=== PATIENT | female | born 1970 | race Caucasian/White ===

== ENCOUNTER 2016-12-05 12:40 | Emergency (ER) | payer OTHER ==
[~2016-12-05] VITALS: Ht 165.1 cm; Wt 61.2 kg
[~2016-12-05 12:40] MED LIST: ADVAIR DISKU 11 UNIT INH; ALBUTEROL0.09 MG/A1 INH; ALBUTEROL1.25 MG/3 INH/SOL; PREDNISONE 20MG20 MG PO; VENLAFAXINE H37.5 M1 PO
--- NOTE | 2016-12-05 14:05 | ED DYSPNEA/ASTHMA COMPLAINT ---
History of Present Illness General Chief Complaint: Wheezing/Asthma Stated Complaint: ASTHMA Source: patient Exam Limitations: no limitations Vital Signs & Intake/Output Vital Signs & Intake/Output Vital Signs Date Time Temp Pulse Resp B/P Pulse O2 O2 Flow FiO2 Ox Delivery Rate 12/05 1428 95 12/05 1427 98.4 74 20 125/76 95 Room Air 12/05 1251 98.0 91 18 151/93 100 Room Air Allergies Coded Allergies: MDX - Bartlett (WALNUT) (Severe, ANAPHYLAXIS 07/23/15) Uncoded Allergies: GLOVE POWDER (04/04/11) Triage Note: PT TO ED FOR ASTHMA EXACERBATION. TRIED INHALERS AT HOME WITH MINIMAL RELIEF. AUDIBLE WHEEZING IN TRIAGE. Triage Nurses Notes Reviewed? yes : No Patient currently breastfeeds: No HPI: This patient is a 46-year-old female with a past medical history including asthma who presented to the emergency department today with shortness of breath. The patient reported that she is having an asthma exacerbation. She reported that her symptoms started yesterday and have been worsening. She reported that she feels that she is wheezing and has some chest tightness. The patient reported that she ran out of her Advair recently. She has been taking oral air inhaler at home without any relief of her symptoms. Using nebulizer treatments at home without any relief. The patient is denying any fevers, chills, cough, sputum production, abdominal pain, nausea, vomiting, chest pain, or any other associated symptoms. (SACHA HOLBROOK,CUATE) Reconcile Medications Albuterol Sulfate (Albuterol Sulfate Hfa) 0.09 MG/Actuation DARION 2 PUFF INH Q4- 6 PRN PRN SHORTNESS OF BREATH (Reported) 90 MCG PER PUFF Albuterol Sulfate (Albuterol Sulfate Nebulizer Soln) 1.25 MG/3 ML LYN 1 Vial INH/LYN Q6 PRN DYSPNEA Albuterol Sulfate 1.25 MG/3 ML VIAL.NEB 1 Vial INH/LYN Q4-6 PRN ASTHMA Fluticasone-Salmeterol (Advair 100-50 Diskus) 1 UNIT INH 1 PUF INH BID BREATHING PROBLEMS (Reported) Methylprednisolone. (Medrol) 4 MG TAB.DS.PK 1 DP PO AD ASTHMA 6 on day 1 then reduce by one tablet daily until gone VENLAFAXINE HCL (Venlafaxine HCl ER) 37.5 MG CER 1 CAP PO DAILY MENTAL HEALTH (Reported) (EUN WALSH,KE) Past History Travel History Traveled to [place] past 21 day No Medical History Any Pertinent Medical History? see below for history Neurological: NONE EENT: NONE Cardiovascular: NONE Respiratory: asthma Gastrointestinal: NONE Hepatic: NONE Renal: NONE Musculoskeletal: NONE Psychiatric: NONE Endocrine: NONE Blood Disorders: NONE Cancer(s): basal cell carcinoma Surgical History Surgical History: non-contributory Psychosocial History What is your primary language Cuban Tobacco Use: Never used ETOH Use: denies use Illicit Drug Use: denies illicit drug use Family History Hx Contributory? No (CUATE GONCALVES PA-C) Review of Systems Review of Systems Constitutional: Reports: no symptoms. EENTM: Reports: no symptoms. Respiratory: Reports: see HPI. Cardiovascular: Reports: no symptoms. GI: Reports: no symptoms. Genitourinary: Reports: no symptoms. Musculoskeletal: Reports: no symptoms. Skin: Reports: no symptoms. Neurological/Psychological: Reports: no symptoms. All Other Systems: Reviewed and Negative (CUATE GONCALVES PA-C) Physical Exam Physical Exam Respiratory: chest non-tender, MILD RESPIRATORY DISTRESS. eXPIRATORY WHEEZES HEARD THROUGHOUT ALL LUNG COE. nO RHONCHI OR RALES. nO STRIDOR Comments: Well-developed well-nourished person in mild distress HEENT: Normal EENT exam, moist mucous membranes Pharynx normal. No swelling or edema. Neck: Supple, no lymphadenopathy Back: Normal gait. Normal inspection Cardiovascular: Regular rate and rhythm with no murmurs, rubs, or gallops Extremity: Normal equal pulses Neuro: Alert oriented x3, cranial nerves II through XII grossly intact. Skin: No appreciable rash on exposed skin, skin is warm and dry. Psych: Mood and affect is normal Core Measures ACS in differential dx? Yes Severe Sepsis Present: No Septic Shock Present: No (CUATE GONCALVES PA-C) Progress Differential Diagnosis: asthma, AMI, bronchitis, costochondritis, CHF, COPD, musculoskeletal pain, pericarditis, pulmonary embolism, pneumonia, pneumothorax, unstable angina Plan of Care: Orders Procedure Date/time Status AEROSOL (GEN) 12/05 1418 Complete Current Medications Sig/Ronda Start time Last Medication Dose Stop Time Status Admin Methylprednisolone 125 MG ONCE ONE 12/05 1400 CAN (Solu Medrol) 12/05 1401 Initial ED EKG: none Comments: 12/05/2016 2:29:19 PM: At patient's bedside for reevaluation. She reported, "I am feeling much better. I am ready to go home." After DuoNeb treatment, the patient has fewer expiratory wheezes on auscultation. No respiratory distress. This patient will be started on a Medrol Dosepak as well as given a refill of her medication for the nebulizer machine at home. (CUATE GONCALVES PA-C) Departure Departure Disposition: HOME OR SELF CARE Condition: Stable Clinical Impression Primary Impression: Asthma exacerbation Referrals: EN LEONG MD (PCP/Family) Additional Instructions: Use nebulizer machine as needed. Use a rescue inhaler as needed. Please rest and avoid any strenuous activity. Return to the emergency department for any worsening symptoms or concerns. Departure Forms: Customer Survey General Discharge Information Prescriptions: Current Visit Scripts Methylprednisolone. (Medrol) 1 DP PO AD #1 DP 6 on day 1 then reduce by one tablet daily until gone Albuterol Sulfate 1 Vial INH/LYN Q4-6 PRN ASTHMA #150 ML (CUATE GONCALVES PA-C) PA/TEST DRIVER Co-Sign Statement Statement: ED Attending supervision documentation- [] I saw and evaluated the patient. I have also reviewed all the pertinent lab results and diagnostic results. I agree with the findings and the plan of care as documented in the PA's/TEST DRIVER's documentation. [X] I have reviewed the ED Record and agree with the PA's/TEST DRIVER's documentation. [] Additions or exceptions (if any) to the PAs/TEST DRIVER's note and plan are summarized below: [] (EUN WALSH,KE) Critical Care Note Critical Care Note Critical Care Time: 30-74 min (CUATE GONCALVES PA-C)
[2016-12-05 14:27] VITALS: BP 125/76
[2016-12-05] MEDS ORDERED: MEDROL4 M2 PO (14:31)
[2016-12-05] MEDS ORDERED: ALBUTEROL1.25 MG/1 INH/SOL (14:31)
== END 2016-12-05 14:33 ==
LOC: ERH 12:40
DX: J45.901 Unspecified asthma with (acute) exacerbation (principal)
CPT/HCPCS: 1263